=== PATIENT | male | born 1945 | race Caucasian/White ===

== ENCOUNTER → 2022-10-20 | Outpatient (CLI) | payer OTHER | LOC: LAB SHORT 14:06 → PLD 14:06 | DX: D03.39 Melanoma in situ of other parts of face (principal) | CPT/HCPCS: 88341; 88342 ==

== ENCOUNTER 2024-01-27 10:08 | Emergency (ER) | payer OTHER ==
[~2024-01-27] VITALS: Ht 167.6 cm; Wt 49.9 kg
[2024-01-27] MEDS ORDERED: ATOR40TA PO (10:52)
[2024-01-27] MEDS ORDERED: ALDACTONE25 MG (10:52)
[2024-01-27] MEDS ORDERED: TORS10 PO (10:52)
[2024-01-27] MEDS ORDERED: VALS80 (10:53)
[2024-01-27] MEDS ORDERED: WARF1 PO (10:53)
[2024-01-27] MEDS ORDERED: METO25ER (10:53)
[2024-01-27] MEDS ORDERED: LATANOPROST2.5 M3 BOTHEYES (10:54)
[2024-01-27] MEDS ORDERED: TIMDOROPSO LEFTEYE (10:55)
[2024-01-27 12:06] LABS: BASOPHILS ABSOLUTE AUTO 0.06 K/mm3 (0.00-0.23); BASOPHILS PERCENT AUTO 0 % (0-2); EOSINOPHILS PERCENT AUTO 1 % (0-6); Hematocrit 40.9 % (37.0-53.0); Hemoglobin 13.8 g/dL (13.5-17.5); IMMATURE GRAN ABSOLUTE AUTO 0.02 K/mm3 (0.00-0.10); IMMATURE GRAN PERCENT AUTO 0 % (0-1); LYMPHOCYTES ABSOLUTE AUTO 15.69 K/mm3 (0.84-5.20); LYMPHOCYTES PERCENT AUTO 80 % (21-46); MONOCYTES ABSOLUTE AUTO 0.45 K/mm3 (0.16-1.47); MONOCYTES PERCENT AUTO 2 % (4-13); Mean Corpuscular HGB 34.1 pg (26.0-34.0); Mean Corpuscular HGB Conc 33.7 g/dL (31.5-36.5); Mean Corpuscular Volume 101 fL (80-100); Mean Platelet Volume 9.6 fL (9.1-12.4); NEUTROPHILS ABSOLUTE AUTO 3.29 K/mm3 (1.96-9.15); NEUTROPHILS PERCENT AUTO 17 % (41-73); NRBC ABSOLUTE 0.02 K/mm3 (0.00-0.02); NRBC Auto 0.1 /100 WBC (0.0-0.2); Platelet Count 177 K/mm3 (150-400); RDW Coefficient Variation 16.1 % (11.7-14.2); RDW Standard Deviation 60.4 fL (35.1-46.3); Red Blood Cell Count 4.05 M/mm3 (4.30-5.90); White Blood Cell Count 19.61 K/mm3 (4.00-11.30)
[2024-01-27 12:22] LABS: Albumin, Blood 3.4 g/dL (3.4-5.0); Albumin/Globulin Ratio 1.1 (0.8-1.8); Bilirubin, Total 0.7 mg/dL (0.1-1.0); Bun/Creatinine Ratio 23.5 (12.0-20.0); Calcium, Blood 9.1 mg/dL (8.5-10.1); Creatinine, Blood 1.32 mg/dL (0.60-1.20); Magnesium, Blood 2.6 mg/dL (1.6-2.4); Potassium, Blood 3.9 mmol/L (3.5-5.5); Total Protein, Blood 6.4 g/dL (6.4-8.2)
[2024-01-27 14:20] LABS: Source, Urine Clean Catch
[2024-01-27 14:24] LABS: Appearance, Urine Clear (Clear); Bilirubin, Urine Neg (Neg); Blood, Urine Neg (Neg); Color, Urine Yellow (P-Yellow); Glucose Qualitative, Urine Neg (Neg); Ketones, Urine Neg (Neg); Leukocyte Esterase, Urine Neg (Neg); Nitrite, Urine Neg (Neg); Protein, Urine 2+ (Neg); Urobilinogen, Urine NORM (Normal)
[2024-01-27 14:40] LABS: Bacteria Few /hpf; Red Blood Cells, Urine 0-2 /hpf (0-2); Squamous Epithelial Cells Rare /hpf (Few); White Blood Cells, Urine 0-2 /hpf (0-5)
[2024-01-27 15:15] VITALS: BP 116/64
== END 2024-01-27 15:15 | disposition home or self-care (01) ==
LOC: ER 10:08
PROVIDERS: Student in an Organized Health Care Education/Training Program
DX: R10.31 Right lower quadrant pain (principal); Z87.19 Personal history of other diseases of the digestive system; Z79.01 Long term (current) use of anticoagulants; Z79.899 Other long term (current) drug therapy; Z88.8 Allergy status to other drugs, medicaments and biological substances
CPT/HCPCS: 74177; 80053; 81001; 83690; 83735; 85025; 99284-25; Q9967

== ENCOUNTER 2024-05-15 06:00 | Day surgery (SDC) | payer OTHER ==
[2024-05-15] VITALS (11 sets, daily range): BP systolic 90–1041; BP diastolic 57–90
[~2024-05-15] VITALS: Ht 167.6 cm; Wt 53.6 kg
[~2024-05-15 06:00] MED LIST: ATOR40TA PO; LATANOPROST2.5 M3 BOTHEYES; METO25ER PO; NITR.4SL SL; SPIR25 PO; TIMDOROPSO LEFTEYE; TIMO.5OPSO LEFTEYE; TORS10 PO; TORSE20 PO; VALS80 PO; WARF1 PO
[2024-05-15] MEDS ORDERED: CeFAZolin Sodium 2,000 MG in NS 100 ML IV SCH (06:20)
[2024-05-15] MEDS ORDERED: Lactated Ringer's 1,000 ML IV SCH (06:20)
[2024-05-15] MEDS ORDERED: Rocuronium Bromide 10 MG/ML 5ML Injection IV ONE (06:28)
[2024-05-15] MEDS ORDERED: FentaNYL Citrate 50 MCG/ML 5 ML Injection ONE (06:28)
[2024-05-15] MEDS ORDERED: Ondansetron HCl 2 MG / ML 2ML Vial ONE (06:28)
[2024-05-15] MEDS ORDERED: Dexamethasone Sod Phos 10 MG/ML 1ML VIAL ONE (06:28)
[2024-05-15] MEDS ORDERED: Ketorolac Tromethamine 30mg Vial ONE (06:28)
[2024-05-15] MEDS ORDERED: Sugammadex Sodium 200 MG/2ML SDV (100 MG/ML) ONE (06:28)
[2024-05-15] MEDS ORDERED: propofoL 20 ML IV ONE (06:28)
[2024-05-15] MEDS ORDERED: Diovan40 MG PO (06:31)
[2024-05-15] MEDS ORDERED: CeFAZolin Sodium 2,000 MG VIAL ONE (06:57)
--- NOTE | 2024-05-15 06:59 | NUR ---
Ambulatory in Day Surgery History, Chart, Medications and Allergies reviewed before start of procedure. Pre-Op teaching done. Pt verbalizes understanding. Patient States Post-Procedure ride home has been arranged.
[2024-05-15] MEDS ORDERED: Bupivacaine 0.5% HCl 5 MG/ML 30MLVIAL ONE (07:10)
[2024-05-15] MEDS ORDERED: HYDROmorphone HCl/Pf 1MG SYR ONE (09:00)
[2024-05-15] MEDS ORDERED: HYDROcodone 5-APAP 325 TAB PO PRN (09:20)
--- NOTE | 2024-05-15 10:19 | NUR ---
DISCHRGE NOTE PT A&OX4, BREATHING RA, TOLERATING PO INTAKE, VSS, PT HAS NO COMPLAINTS. GLASSES ON PT. CRACKLES TO LUNGS, PT ABLE TO COUGH AND DEEP BREATHE TO CLEAR LUNGS. DRESSING INDEPENDENTLY. ICE PACK GIVEN TO PT. Discharge instructions reviewed with patient. Patient verbalizes understanding. Copy given to patient to take home. Dressing to procedure site clean, dry, intact with no visible drainage, swelling, erythema or bruising noted. PT AWAITING RIDE IN [facility]SU RIDE IS DELAYED.
--- NOTE | 2024-05-15 10:34 | NUR ---
Patient up to Ambulate independently. Gait steady. Discharged via wheelchair to private car for ride home.
== END 2024-05-15 10:25 | disposition home or self-care (01) ==
LOC: ORSCMMR 06:00 → ORD 07:30 → ORSCMMR 07:30
PROVIDERS: Surgery
PROC: 0YU50JZ Supplement Right Inguinal Region with Synthetic Substitute, Open Approach (ICD-10-PCS; principal; 2024-05-15 07:30)
DX: K40.90 Unilateral inguinal hernia, without obstruction or gangrene, not specified as recurrent (principal); I10 Essential (primary) hypertension; I48.91 Unspecified atrial fibrillation; Z79.01 Long term (current) use of anticoagulants; J44.9 Chronic obstructive pulmonary disease, unspecified; K21.9 Gastro-esophageal reflux disease without esophagitis; I50.9 Heart failure, unspecified; E78.00 Pure hypercholesterolemia, unspecified; Z79.899 Other long term (current) drug therapy
CPT/HCPCS: C1781; J0690; J1100; J1171; J1885; J2405; J2704; J3010; J7120

== ENCOUNTER → 2024-07-04 | Outpatient (CLI) | payer OTHER ==
[~2024-07-04] MED LIST changes: +Diovan40 MG PO
[2024-07-04 20:07] LABS: Albumin, Blood 4.2 g/dL (3.4-5.0); Albumin/Globulin Ratio 1.6 (0.8-1.8); Bilirubin, Total 0.8 mg/dL (0.1-1.0); Bun/Creatinine Ratio 23.5 (12.0-20.0); Calcium, Blood 9.6 mg/dL (8.5-10.1); Creatinine, Blood 1.15 mg/dL (0.60-1.20); Globulin, Blood 2.7 g/dL (2.2-4.0); Phosphorus, Blood 2.9 mg/dL (2.5-4.9); Potassium, Blood 4.8 mmol/L (3.5-5.5); Total Protein, Blood 6.9 g/dL (6.4-8.2)
== END ==
LOC: LAB 16:42 → LAB SHORT 16:42
PROVIDERS: Internal Medicine Hematology & Oncology
DX: C91.10 Chronic lymphocytic leukemia of B-cell type not having achieved remission (principal)
CPT/HCPCS: 80053; 84100

== ENCOUNTER 2025-03-07 10:59 | Day surgery (SDC) | payer OTHER ==
[~2025-03-07] VITALS: Ht 167.6 cm; Wt 47.9 kg
[~2025-03-07 10:59] MED LIST changes: +XALATAN2.5 ML
[2025-03-07] MEDS ORDERED: JARDIANCE10 MG PO (11:37)
[2025-03-07] MEDS ORDERED: EZET10 PO (11:37)
[2025-03-07] MEDS ORDERED: AREDS (11:38)
[2025-03-07] MEDS ORDERED: KOURZEQ5 GM DT (11:38)
[2025-03-07] MEDS ORDERED: ELIQUIS2.5 MG PO (11:39)
--- NOTE | 2025-03-07 14:06 | NUR ---
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 DR WILL REFER PT PENDING RESULTS AFTER SPEAKING WITH PATIENT FOLLOWING PROCEDURE TODAY.
[2025-03-07 14:44] VITALS: BP 135/59
== END 2025-03-07 14:07 | disposition home or self-care (01) ==
LOC: ORSCSDS 10:59
PROVIDERS: Specialist
PROC: 0DBP8ZX Excision of Rectum, Via Natural or Artificial Opening Endoscopic, Diagnostic (ICD-10-PCS; principal; 2025-03-07 13:00)
DX: K92.1 Melena (principal); D12.8 Benign neoplasm of rectum; Z86.0101 Personal history of adenomatous and serrated colon polyps; J44.9 Chronic obstructive pulmonary disease, unspecified; I48.91 Unspecified atrial fibrillation; E78.5 Hyperlipidemia, unspecified; K21.9 Gastro-esophageal reflux disease without esophagitis; I50.9 Heart failure, unspecified; I25.5 Ischemic cardiomyopathy; I49.5 Sick sinus syndrome; I12.9 Hypertensive chronic kidney disease with stage 1 through stage 4 chronic kidney disease, or unspecified chronic kidney disease; E11.22 Type 2 diabetes mellitus with diabetic chronic kidney disease; N18.9 Chronic kidney disease, unspecified; Z95.0 Presence of cardiac pacemaker; I73.9 Peripheral vascular disease, unspecified; Z79.01 Long term (current) use of anticoagulants; Z79.84 Long term (current) use of oral hypoglycemic drugs; Z79.899 Other long term (current) drug therapy
CPT/HCPCS: 82947; 88305; J2704; J7120